=== PATIENT | male | born 2000 | race Asian ===

== ENCOUNTER 2023-03-12 08:24 | Day surgery (SDC) | payer OTHER ==
[2023-03-12] MEDS ORDERED: LACTATED RINGERS 1,000 ML IV ONE ×3 (08:57→12:22)
--- NOTE | 2023-03-12 10:33 | ANESTHESIA ---
Pre-Anesthesia VS, & Labs - Diagnosis lipomas abdomen , and both forearms - Procedure excision lipomas seft abdomen, right and left forearm Vital Signs: Temp Pulse Resp BP Pulse Ox O2 Flow Rate 36.5 C 62 18 112/73 100 03/12/23 08:58 03/12/23 08:58 03/12/23 08:58 03/12/23 08:58 03/12/23 08:58 Height: 5 ft 6 in Weight (kg): 86.1 kg Body Mass Index: 30.6 BMI Classification: Obese - NPO >8 hours Home Medications and Allergies Home Medications: Ambulatory Orders Multivitamin 1 each PO DAILY 03/05/23 Biotin [Efll-Xmbg-Fhoff] 10,000 mcg PO DAILY 03/12/23 Multivitamin 1 each PO DAILY 03/05/23 Biotin [Bfss-Hqpe-Zlhtu] 10,000 mcg PO DAILY 03/12/23 Allergies/Adverse Reactions: Allergies Allergy/AdvReac Type Severity Reaction Status Date / Time nickel Allergy Rash Verified 03/12/23 08:58 Anes History & Medical History - Anesthetic History Anesthesia Complications: reports: No previous complications Family history of Anesthesia Complications: Denies Family history of Malignant Hyperthermia: Denies - Medical History Cardiovascular: reports: None Pulmonary: reports: Sleep apnea, CPAP use Gastrointestinal: reports: None Urinary: reports: None Musculoskeletal: reports: None Endocrine/Autoimmune: reports: None Skin: reports: None Smoking Status: Never smoker Psychosocial: reports: Alcohol (once a month) History of Cancer?: No Exam General: Alert, Oriented x3 Dental: WNL Neck Mobility: Normal Mallampati classification: I Thyromental Distance: greater than 6 cm Respiratory: Lungs clear Cardiovascular: Regular rate Plan Anesthesia Type: General, MAC, Total IV Consent for Procedure(s) Verified and Reviewed: Yes Code Status: Attempt Resuscitation ASA classification: 2-Mild systemic disease Is this case an emergency?: No
--- NOTE | 2023-03-12 11:11 | HISTORY & PHYSICAL EXAMINATION ---
Chief Complaint - Chief Complaint Chief Complaint: tender lumps History of Present Illness - History Obtained From Records Reviewed: yes History obtained from: pt Exam Limitations: none - History of Present Illness HPI Comment/Other: tender lump right forearm, left forearm, and left lower abdomen History - Past Medical History Cardiovascular: reports: None (growing and now symptomatic lipomas both forearms and left abdomen) Respiratory: reports: Sleep apnea, CPAP use Endocrine/Autoimmune: reports: None GI: reports: None : reports: None HEENT: reports: Chronic vision loss Psych: reports: None Musculoskeletal: reports: None Derm: reports: None MRSA Hx?: No Meds/Allgy - Home Medications Home Medications: Ambulatory Orders Medication Instructions Recorded Confirmed Multivitamin 1 each PO DAILY 03/05/23 03/05/23 Biotin [Lulh-Vddf-Jbtwe] 10,000 mcg PO DAILY 03/12/23 03/12/23 - Allergies Allergies/Adverse Reactions: Allergies Allergy/AdvReac Type Severity Reaction Status Date / Time nickel Allergy Rash Verified 03/12/23 08:58 Review of Systems - Other Findings Other Findings: 10 pt ros as above otherwise unremarkable Exam - Vital Signs Reviewed Vital Signs: Yes Vital Signs: Vital Signs x48h Temp Pulse Resp BP Pulse Ox 03/12/23 08:58 36.5 C 62 18 112/73 100 - Physical Exam General Appearance: positive: No acute distress, Alert Eyes Bilateral: positive: PERRL, EOMI ENT: positive: No signs of dehydration Neck: positive: No JVD, Trachea midline Respiratory: positive: Breath sounds nml Cardiovascular: positive: Regular rate & rhythm Skin: positive: Other (tender 1.5 cm lipoma left forearm and right forearm 2 cm tender lipoma left lower abdomen) Conclusion/Plan - Problem List (1) Multiple lipomas Conclusion/Plan: plan excision symptomatic lipomas. parq held and consent obtained
[2023-03-12] MEDS ORDERED: fentaNYL 100 MCG/2 ML VIAL ONE (11:15)
[2023-03-12] MEDS ORDERED: LIDOCAINE 1%-EPI 1:100000 20 ML MDV ONE (11:17)
[2023-03-12] MEDS ORDERED: BUPIVACAINE 0.25% PF 10 ML VIAL ONE (11:18)
[2023-03-12] MEDS ORDERED: PROPOFOL 500 MG/50 ML 500 MG/50 ML VIAL ONE ×2 (11:24→11:54)
[2023-03-12] MEDS ORDERED: GLYCOPYRROLATE 1 MG/5 ML VIAL ONE (11:41)
[2023-03-12] MEDS ORDERED: DEXAMETHASONE 4 MG/ML VIAL ONE (11:42)
[2023-03-12] MEDS ORDERED: ONDANSETRON 4 MG/2 ML VIAL ONE (11:42)
[2023-03-12] MEDS ORDERED: BUPIVACAINE 0.25% PF 10 ML VIAL SUBQ ONE ×2 (11:49)
[2023-03-12] MEDS ORDERED: LIDOCAINE 1%-EPI 1:100000 20 ML MDV SUBQ ONE ×2 (11:49)
[2023-03-12] MEDS ORDERED: HYDROcod/ACETAM 5/325 MG TABLET PO PRN (12:20)
--- NOTE | 2023-03-12 12:40 | OPERATIVE REPORT ---
Operative Report - General Procedure Date: 03/12/23 Planned Procedure: exicision right and left forearm lipomas and left lower abdomen lipoma Pre-Op Diagnosis: tender lipomas sharonda forearms and left lower abdomen, subcutaneous Procedure Performed: excision 1 cm lipoma right and left forearm, both subcutaneous excision 2 cm lipoma left lower abdomen, subcutaneous Post Op Diagnosis: same - Procedure Note Primary Surgeon: janie hernandez Anesthesia Technique: Local, MAC Pathology: benign, not sent Estimated Blood Loss (mL): 1 Drain/Tube Type: Other (none) Indications: tender lipomas Findings: as above Complications: none - Other Other Information/Narrative: The patient was properly identified brought to the operating room and placed in supine position. Monitored anesthesia care and IV sedation was given. He was prepped and draped in a sterile fashion. Antibiotics were not given. Local anesthetic was given to incision areas. He had a 1 cm lipoma of both forearms. Both lipomas were removed intact with combination of sharp and blunt dissection through a 1 cm incision. Intermediate repair was performed with buried interrupted 3-0 Vicryl followed by buried interrupted subdermal 4-0 Monocryl. The abdominal lipoma was then addressed. A 2 cm incision was made directly over the palpable lipoma. It was removed in its entirety with combination sharp and blunt dissection. Subcutaneous tissue was closed with interrupted 3-0 Vicryl suture. Buried interrupted subdermal 4-0 Monocryl sutures were placed. Dressings were applied. He was awakened and brought to recovery in good condition.
[2023-03-12 13:12] VITALS: BP 116/73; O2SAT 100
== END 2023-03-12 08:25 | disposition home or self-care (01) ==
LOC: SDS 08:24
PROVIDERS: ATTEND Surgery
DX: D17.22 Benign lipomatous neoplasm of skin and subcutaneous tissue of left arm (principal); D17.21 Benign lipomatous neoplasm of skin and subcutaneous tissue of right arm; D17.1 Benign lipomatous neoplasm of skin and subcutaneous tissue of trunk; E66.9 Obesity, unspecified; G47.30 Sleep apnea, unspecified; Z68.30 Body mass index [BMI] 30.0-30.9, adult
CPT/HCPCS: 22902; 25075; J7120

== ENCOUNTER 2023-12-05 09:02 | Outpatient (CLI) | payer OTHER ==
--- NOTE | 2023-12-05 09:46 | Sleep Patient Instructions ---
Sleep Center Visit Summary - Patient Visit Information Reason for Visit: Initial consultation - Patient Instructions Additional Instructions: You will continue with CPAP therapy with pressure changed to 5-10 cmH2O. Please let us know if the pressure change is uncomfortable and we can make further adjustments of the pressure. A supply prescription with transfer of care to new DME supplier will be sent. We encourage you to continue to try to lose weight. Please follow up with the sleep care office in 1 year. - Clinic Information Contact: [facility] [address] [place] [address] [email or web address] T: [phone]
--- NOTE | 2023-12-05 09:48 | SLEEP CARE CONSULTATION ---
Information from patient questionnaire entered by Keila Hernandez. I have reviewed and concur with the information entered by Keila Hernandez. This document represents the service I personally performed and the decisions made by me, Cathy Alejandre ARNP. 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 denies: Choking, Gasping for air Toss, Turn, or Twitch while sleeping: Yes Recalls having dreams: Yes Usually gets out of bed at: 4952-1103 Feels refreshed in the morning: Yes Morning headache: No Sleepy or fatigued during the day: Yes Ever fallen asleep while driving: No Takes day naps: No Dreams during day naps: No Prior sleep studies: Yes Year and Where: 07/2021 [facility] Additional HPI information: BRIGITTE DO was previously diagnosed to have mild, AHI 8.3, obstructive sleep apnea-hypopnea syndrome as seen in sleep study done on 08/02/2021 through [facility] in [facility] and comes in today to establish care for CPAP therapy. - Parasomnia Symptoms Ever been unable to move upon waking from sleep: No Walks in sleep: No Talks in sleep: Yes Ever acted out dreams in sleep: Yes Ever felt weak in the knees when startled or emotional: No Bothered by creepy, crawly, restless sensations in legs: No Problems with memory or concentration: Yes CPAP Compliance Data - Data Reviewed with Patient Average duration of nightly device use: 6 hours 13 minutes Compliance rate %: 82 (85/90 days used) Current pressure setting (cmH2O): 5-15 (median 5.8, avg 7.2, max 8) Average residual AHI: 1.3 Central apnea: 0.3 Obstructive apnea: 0.9 Hypopnea: 0.1 Average large leak: 0 L/min Compliance data discussion: He has a [employer] Airsense 10 that was set up in 11/2021. He was getting supplies in [place] but has not been getting since he was moved here. He is using a nasal cushion mask, small cushion. Subjective Missed days of use due to: reports: travel (camping trip) Patient concerns: reports: dry mouth, nose, throat (dry mouth). denies: aerophagia, mask discomfort, air blowing in eyes, mask leak noise, condensation in mask/hose, nasal congestion, epistaxis Observed to snore while using device: No Current pressure setting perceived as: comfortable On therapy, patient: reports: sleeping better, awakening more refreshed, being more awake and alert during the day, more rested overall. denies: drowsiness while driving Initial [place] Sleepiness Scale score: 10 (12/05/23) Past Medical History Past Medical History: reports: Anxiety Social History The patient's occupation is a AM. Patient is and lives in . Have you smoked in the past 12 months: No Alcohol use: Yes Alcohol amount and frequency: 1-2 DRINKS ONCE A MONTH Caffeine use: No Family History Family history of sleep disordered breathing: Yes Family Hx Sleep Apnea: Mother: Snoring, Sleep apnea - Treated, Grandparent: Snoring Allergies and Home Medications Known drug allergies: No Drug allergies reviewed: Yes Home medication list reviewed: Yes (as listed) Allergy and home medication list: Allergies nickel Allergy (Verified 12/05/23 09:06) Rash Home Medications Medication Instructions Recorded Confirmed Last Taken Type Multivitamin 1 each PO DAILY 03/05/23 12/05/23 03/07/23 History Review of Systems Weight gain over past 5 years: 7 Cardiovascular: denies: high blood pressure Gastrointestinal: denies: heartburn Neurological: denies: headaches Psychiatric: reports: anxiety Ear/Nose/Throat: reports: wisdom teeth removed. denies: tonsillectomy Physical Exam Vital signs obtained and entered by: KEILA Barrera MA Blood Pressure: 111/77 (RIGHT ARM) Cuff size: regular Heart Rate: 53 O2 Saturation: 99 Height: 5 ft 6 in (PER PT) Weight: 185 lb (PER PT) Body Mass Index: 29.8 BMI Classification: Overweight Neck circumference: 16 Impression and Plan 1. Obstructive Sleep Apnea-Hypopnea Syndrome, mild, with [fair] treatment compliance and [] apnea control. On CPAP therapy, the patient has better sleep quality and is more rested overall. Patient's apnea severity and rationale for treatment to reduce apnea, improve sleep quality and reduce cardiovascular and cerebrovascular events was reviewed. I also reviewed the benefit of consistent device use of [CPAP] for [hypertension, ][cardiac disease, ][cerebrovascular disease, ][arrhythmia, ][diabetes, ] [gastric reflux, ][depression/anxiety, ][migraines]. 2. [Obesity][Overweight], unspecified. Currently patients BMI is [29.8]. Obesity increases the risk of apnea, CPAP pressure requirements and overall health risks especially cardiovascular and diabetes. Thus patient is advised to[ continue to try to] lose weight. * Continue[ auto] CPAP pressure at [] cmH2O * Change[ auto] CPAP pressure to [] cmH2O * Update supply prescription. * Notify me if snoring with mask or feeling that the pressure is too much or too little * Attempt to lose weight * Call this office if any problems using CPAP * Return for follow up in 12 months, or sooner if concerns arise Adjust device pressure to (cmH2O): 5-10 Counseling Topics: Weight loss health impact Prescriptions: Device supplies (with Transfer DME) Visit Type: In Office Time Spent with Patient (minutes): 28 Provider Statement: I spent 100% of the Face to Face Visit with the patient with greater than 50% spent counseling the patient and coordination of care.
[2023-12-05 09:57] VITALS: BP 111/77; O2SAT 99
== END 2023-12-05 09:03 | disposition home or self-care (01) ==
LOC: SC 09:02
PROVIDERS: ATTEND Nurse Practitioner Family
DX: G47.33 Obstructive sleep apnea (adult) (pediatric) (principal); E66.3 Overweight; Z68.29 Body mass index [BMI] 29.0-29.9, adult
CPT/HCPCS: 99202; 99212